=== PATIENT | female | born 1965 | race Caucasian/White ===

== ENCOUNTER 2016-12-07 13:14 | Emergency (ER) | payer BC ==
[2016-12-07 14:12] VITALS: BP 117/69
--- NOTE | 2016-12-07 14:45 | UC ---
FLU HPI - History of Current Complaint Chief Complaint: UCRespiratory Stated Complaint: HEADACHE,TIRED,COUGH,BODYACHES Time Seen by Provider: 12/07/16 14:36 Hx Obtained From: Patient ?: No Onset/Duration: Sudden Onset, Lasting Days - 1, Worse Since - today Severity Currently: Mild Severity Initially: Moderate Associated Signs & Symptoms: Positive: Myalgia, Cough, Nasal Congestion, Headache - sinus Frontal and maxillary Related Hx: Possible Flu/Infectious Exposure - Risk Factors Influenza Risk Factors: Negative - Allergy/Home Medications Allergies/Adverse Reactions: Allergies Allergy/AdvReac Type Severity Reaction Status Date / Time Morphine Allergy Itching Verified 12/07/16 14:05 Home Medications: Home Medications Escitalopram (NF) [Lexapro (NF)] 5 mg PO DAILY 12/07/16 [History Confirmed 12/07] Mesalamine (NF) [Lialda (NF)] 4.8 gm PO DAILY 12/07/16 [History Confirmed ] Naproxen Sodium [Eql Naproxen Sodium] 220 mg PO Q12H PRN 12/07/16 [History Confirmed 12/07/16] PMH/Surg Hx/FS Hx/Imm Hx Previously Healthy: No Psychological History Of: Reports: Anxiety - Surgical History Surgical History: Yes Surgery Procedure, Year, and Place: Bilateral Knee Arthroscopies - Family History Known Family History: Positive: Other - Stroke and cancer - Social History Occupation: Employed Full-time Lives: With Family Alcohol Use: Weekly Substance Use Type: None Smoking Status (MU): Former Smoker Have You Smoked in the Last Year: No When Did the Patient Quit Smoking/Using Tobacco: ~1996 - Immunization History Most Recent Influenza Vaccination: Current for Season Review of Systems Constitutional: Fever, Chills Respiratory: Cough Musculoskeletal: Myalgia Neurological: Headache All Other Systems Reviewed And Are Negative: Yes Physical Exam Triage Information Reviewed: Yes Appearance: No Pain Distress, Well-Nourished, Ill-Appearing Vital Signs: Initial Vital Signs Temp 99.3 F 12/07/16 14:02 Pulse 90 12/07/16 14:02 Resp 18 12/07/16 14:02 BP 117/69 12/07/16 14:02 Pulse Ox 100 12/07/16 14:02 Vital Signs Reviewed: Yes Eyes: Positive: Conjunctiva Clear ENT: Positive: Pharyngeal erythema, Nasal congestion, TMs normal Neck exam: Normal Respiratory Exam: Normal Cardiovascular Exam: Normal Musculoskeletal Exam: Normal Neurological Exam: Normal Psychological Exam: Normal Skin Exam: Normal Flu Course/Dx - Differential Dx/Diagnosis Differential Diagnosis/HQI/PQRI: Influenza, Pneumonia, Upper Respiratory Infection Provider Diagnoses: Acute URI. Acute sinusitis Discharge - Discharge Plan Condition: Stable Disposition: HOME Prescriptions: Amoxicillin (*) 875 mg PO BID #20 tab Forms: *Work Release Additional Instructions: NASAL SPRAYS AND DROPS: Afrin in the PUMP/ MIST bottle. Tilt your head down and look at the floor while doing a strong sniff with the spray. Decongestant nasal sprays and drops often give dramatic relief from congestion. They are often recommended for patients with sinus infection to assist with sinus drainage. Persons with high blood pressure should consult the doctor before using these nasal sprays. Afrin and Epifanio-Synephrine are common [id number] preparations. They should not be used for more than five days, as "rebound" congestion can occur - - the congestion flares as the drug wears off. A way of dealing with this rebound congestion problem is to medicate only one nostril each time, allowing the other nostril to recover from the medicine' s effects. When you no longer need the drug during the day, spray only one nostril each night. This helps you sleep well without severe rebound congestion. Call the doctor if you develop severe headache, palpitations, or chest pain.
== END 2016-12-07 14:58 | disposition home or self-care (01) ==
LOC: UCCORT 13:14
DX: J01.10 Acute frontal sinusitis, unspecified (principal); J01.00 Acute maxillary sinusitis, unspecified; J06.9 Acute upper respiratory infection, unspecified; F41.9 Anxiety disorder, unspecified; Z87.891 Personal history of nicotine dependence; Z88.5 Allergy status to narcotic agent
CPT/HCPCS: 87502; 99212; G0463

== ENCOUNTER 2017-06-02 10:48 | Emergency (ER) | payer BC, OTHER ==
[2017-06-02 11:15] VITALS: BP 121/85
--- NOTE | 2017-06-02 12:07 | ED ---
Upper Extremity Pain - HPI Summary HPI Summary: 51 female presents to ED with complaints of right shoulder pain and intermittent numbness/tingling of right arm that began after sustaining an injury just [employer] while at work. 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 Patient pulled on right arm and ever since it has been very sore and painful. States it has been getting more stiff and sore over the past couple of hours. Numbness/tingling is "not that bad" and intermittent with movement. Pain is also worse with movement. No loss of ROM. Some radiation into trapezius muscle/ neck. No other injuries or complaints. No PMHx other than ulcerative colitis. Has already taken two tylenol. Unable to take NSAIDs due to UC. No chest pain, difficulty breathing. - History of Current Complaint Chief Complaint: EDExtremityUpper Stated Complaint: SHOULDER INJURY FROM WORK Time Seen by Provider: 06/02/17 11:34 Hx Obtained From: Patient Mechanism Of Injury: Twisted Onset/Duration: Started Hours Ago, Traumatic, Still Present, Worse Since Timing: Intermittent - with movement Severity Initially: Mild Severity Currently: Moderate Pain Location: Shoulder - right Character: Sharp, Aching Aggravating Factor(s): Movement, Lifting, Flexion, Extension Alleviating Factor(s): Rest Associated Signs & Symptoms: Positive: Negative, Numbness/Tingling Related History: Dominant Hand Right - Allergies/Home Medications Allergies/Adverse Reactions: Allergies Allergy/AdvReac Type Severity Reaction Status Date / Time Hydrocodone Allergy Itching Verified 06/02/17 10:51 Morphine Allergy Itching Verified 12/07/16 14:05 PMH/Surg Hx/FS Hx/Imm Hx Endocrine/Hematology History: Denies: Hx Diabetes Cardiovascular History: Denies: Hx Hypertension Respiratory History: Denies: Hx Asthma GI History: Reports: Other GI Disorders - Ulcerative colitis Psychiatric History: Reports: Hx Anxiety - Surgical History Surgery Procedure, Year, and Place: Bilateral Knee Arthroscopies - Immunization History Immunizations Up to Date: Yes Infectious Disease History: No Infectious Disease History: Reports: Hx Clostridium Difficile - 2016, [place] Denies: Traveled Outside the [place] in Last 30 Days - Family History Known Family History: Positive: None, Other - Stroke and cancer - Social History Alcohol Use: Weekly Substance Use Type: Reports: None Smoking Status (MU): Former Smoker Have You Smoked in the Last Year: No Review of Systems Constitutional: Negative Cardiovascular: Negative Respiratory: Negative Positive: Arthralgia, Myalgia, Decreased ROM - right shoulder Neurological: Negative All Other Systems Reviewed And Are Negative: Yes Physical Exam Triage Information Reviewed: Yes Vital Signs On Initial Exam: Initial Vitals Temp Pulse Resp BP Pulse Ox 97.8 F 85 16 142/100 99 06/02/17 10:51 06/02/17 10:51 06/02/17 10:51 06/02/17 10:51 06/02/17 10:51 Vital Signs Reviewed: Yes Appearance: Positive: Well-Appearing, No Pain Distress, Well-Nourished Skin: Positive: Warm, Skin Color Reflects Adequate Perfusion, Dry. Negative: Cold, Numb, Cyanosis @, Pale, Erythema @ Head/Face: Positive: Normal Head/Face Inspection Eyes: Positive: Conjunctiva Clear ENT: Positive: Hearing grossly normal Neck: Positive: Supple, Nontender Respiratory/Lung Sounds: Positive: Clear to Auscultation, Breath Sounds Present. Negative: Rales, Rhonchi, Subcutaneous Emphysema, Wheezes Cardiovascular: Positive: Normal, RRR, Pulses are Symmetrical in both Upper and Lower Extremities - 2+ radial b/l. Negative: Murmur, Rub Musculoskeletal: Positive: Strength/ROM Intact - however painful with flexion/ extension and movement, able to, Pain @ - right shoulder anterior and posterior on palaption, Other - no edema ecchymosis or crepitus, no step off. clavicle in tact. no obvious deformity. Negative: Limited @, Interruption @, Edema Left, Edema Right Neurological: Positive: Normal, Sensory/Motor Intact - sensation intact, Alert, Oriented to Person Place, Time, Reflexes Intact, NV Bundle Intact Distally, Normal Gait Psychiatric: Positive: Affect/Mood Appropriate Diagnostics - Vital Signs Vital Signs Temp Pulse Resp BP Pulse Ox 06/02/17 11:12 99 F 77 18 121/85 98 06/02/17 10:51 97.8 F 85 16 142/100 99 - Laboratory Lab Statement: Any lab studies that have been ordered have been reviewed, and results considered in the medical decision making process. Course/Dx - Course Course Of Treatment: due to patietns PE findings, HPI and SUE does not appear to be suffering from any skeletal injury. did not appear to benefit from an x- ray at this time. already took tylenol unable to take other pain medications or NSAIDs. trial of muscle relaxer at home. RICE and continue tylenol. Aware of worsening signs and symptoms to watch out for. Follow up ortho if worsen or new symptoms. Follow pcp. Heating pads, ice and use pain as guide. Given sling. Worker's comp. - Diagnoses Provider Diagnoses: Sprain of shoulder, right Discharge - Discharge Plan Condition: Stable Disposition: HOME Prescriptions: Metaxalone TAB* [Skelaxin TAB*] 800 mg PO BEDTIME PRN #10 tab PRN Reason: Spasms Patient Education Materials: Shoulder Sprain (ED) Referrals: Non Staff,Doctor [Primary Care Provider] - Additional Instructions: Continue taking Tylenol for pain. Muscle relaxer at bedtime, as it will make you drowsy. Follow up with ortho if symptoms worsen or persist, as discussed. Heat/Ice as directed. Follow up with PCP. Rest and wear sling if more comfortable. Be sure to gently move shoulder using pain as your guide to avoid frozen shoulder.
== END 2017-06-02 12:22 | disposition home or self-care (01) ==
LOC: ED 10:48
DX: S61.511A Laceration without foreign body of right wrist, initial encounter (principal); W25.XXXA Contact with sharp glass, initial encounter; Y93.9 Activity, unspecified; Y92.9 Unspecified place or not applicable
CPT/HCPCS: 12002; 90471; 99281